=== PATIENT | female | born 1990 | race Caucasian/White ===

== ENCOUNTER 2017-11-19 04:46 | Inpatient (IN) | payer MEDICAID ==
[2017-11-19] MEDS ORDERED: AMPICILLIN 2 GM/NS (PMX) 100 ML (05:20)
[2017-11-19] MEDS ORDERED: MISOPROSTOL 200 MCG TAB PR ×2 (05:30→12:00)
[2017-11-19] MEDS ORDERED: LIDOCAINE 1% (MPF) 30 ML INJ INJ (05:30)
[2017-11-19] MEDS ORDERED: OXYCODONE/ASPIRIN (4.88/325) TAB PO (05:30)
[2017-11-19] MEDS ORDERED: METHYLERGONOVINE 0.2 MG INJ IM ×2 (05:30→12:00)
[2017-11-19] MEDS ORDERED: OXYTOCIN 30 UNITS/LR 500 ML IV ×2 (05:30→12:00)
[2017-11-19] MEDS ORDERED: IBUPROFEN 600 MG TAB PO (05:30)
[2017-11-19] MEDS ORDERED: CARBOPROST 250 MCG INJ IM ×2 (05:30→12:00)
[2017-11-19] MEDS: LACTATED RINGER'S 1,000 ML IV (05:37)
[2017-11-19] MEDS: AMPICILLIN 2 GM/NS (PMX) 100 ML IVPB (05:41)
[2017-11-19 06:34] LABS: ADD MAN DIFF? NO
[2017-11-19 06:40] LABS: BASOPHILS % 0.2 % (0.0-2.0); EOSINOPHILS % 0.3 % (0.0-7.0); HEMATOCRIT 41.9 % (37.0-47.0); HEMOGLOBIN 14.3 g/dl (12.0-16.0); LYMPHOCYTES # 2.5 10^3/ul (0.8-2.9); MEAN CORPUSCULAR HEMOGLOBIN 29.6 pg (29.0-33.0); MEAN CORPUSCULAR HGB CONC 34.1 g/dl (32.0-37.0); MEAN CORPUSCULAR VOLUME 86.7 fl (82.0-101.0); MONOCYTE # 0.5 10^3/ul (0.3-0.9); MONOCYTES % 4.1 % (0.0-11.0); NEUTROPHIL # 7.9 10^3/ul (1.6-7.5); NEUTROPHILS % 72.1 % (39.0-77.0); PLATELET COUNT 145 10^3/UL (140-415); RED BLOOD COUNT 4.83 10^6/ul (4.20-5.40); RED CELL DISTRIBUTION WIDTH 14.3 % (11.5-14.5)
[2017-11-19] MEDS: BUTORPHANOL 2 MG INJ IV (06:42)
[2017-11-19 06:51] LABS: INR 0.83; PARTIAL THROMBOPLASTIN TIME 26.6 Sec (25.0-35.0); PROTIME 11.5 Sec (11.9-14.9); PT RATIO 0.9
[2017-11-19 07:36] LABS: HEPATITIS B SURFACE ANTIGEN NEGATIVE (NEGATIVE)
[2017-11-19] MEDS: AMPICILLIN 1 GM/NS (PMX) 50 ML IVPB (09:00)
[2017-11-19] MEDS: OXYTOCIN 30 UNITS/LR 500 ML IV ×3 (09:32→11:50)
[2017-11-19] MEDS: LACTATED RINGER'S 1,000 ML IV* ×2 (11:50→19:50)
[2017-11-19] MEDS ORDERED: ZOLPIDEM 5 MG TAB PO (12:00)
[2017-11-19] MEDS ORDERED: HYDROCODONE/APAP (5/325) TAB PO (12:00)
[2017-11-19] MEDS ORDERED: ACETAMINOPHEN 325 MG TAB PO (12:00)
[2017-11-19] MEDS ORDERED: DIPHENHYDRAMINE 25 MG CAP PO (12:00)
[2017-11-19] MEDS: IBUPROFEN 800 MG TAB PO ×3 (12:13→23:32)
[2017-11-19] MEDS: WITCH HAZEL/GLYCERIN PAD PR (12:13)
[2017-11-19] MEDS: BENZOCAINE 20% 56 ML SPRAY TOP (12:14)
[2017-11-19] MEDS: LANOLIN 7 GM TUBE TOP (12:14)
[2017-11-19 15:09] LABS: RAPID PLASMA REAGIN NONREACTIVE (NR)
[2017-11-20] MEDS: LACTATED RINGER'S 1,000 ML IV* (03:50)
[2017-11-20] MEDS: IBUPROFEN 800 MG TAB PO ×4 (05:33→23:35)
[2017-11-20 09:41] LABS: ADD MAN DIFF? NO
[2017-11-20 09:47] LABS: WHITE BLOOD COUNT 11.2 10^3/ul (4.8-10.8)
[2017-11-20 09:47] LABS: BASOPHILS % 0.4 % (0.0-2.0); EOSINOPHILS % 0.4 % (0.0-7.0); HEMATOCRIT 38.9 % (37.0-47.0); HEMOGLOBIN 12.9 g/dl (12.0-16.0); LYMPHOCYTES # 3.2 10^3/ul (0.8-2.9); MEAN CORPUSCULAR HEMOGLOBIN 29.4 pg (29.0-33.0); MEAN CORPUSCULAR HGB CONC 33.2 g/dl (32.0-37.0); MEAN CORPUSCULAR VOLUME 88.6 fl (82.0-101.0); MEAN PLATELET VOLUME 12.8 fl (7.4-10.4); MONOCYTE # 0.5 10^3/ul (0.3-0.9); MONOCYTES % 4.8 % (0.0-11.0); NEUTROPHIL # 7.3 10^3/ul (1.6-7.5); NEUTROPHILS % 65.1 % (39.0-77.0); PLATELET COUNT 138 10^3/UL (140-415); RED BLOOD COUNT 4.39 10^6/ul (4.20-5.40); RED CELL DISTRIBUTION WIDTH 14.3 % (11.5-14.5)
[2017-11-20] MEDS: SENNA/DOCUSATE NA (8.6MG/50MG) TAB PO (21:32)
[2017-11-20] MEDS: MAGNESIUM HYDROXIDE 30ML CUP PO (21:32)
[2017-11-21] MEDS: IBUPROFEN 800 MG TAB PO ×2 (05:33→12:03)
[2017-11-21] MEDS: DIPHTH/TET/ACEL PERTUSS (ADULT) 0.5 ML VIAL IM* (09:47)
[2017-11-21] MEDS: VARICELLA VACCINE LIVE/PF 1,350 UNIT/0.5 ML ML SC* (09:48)
[2017-11-21] MEDS: MEASLES,MUMPS,RUBELLA VACCINE INJ SC* (09:48)
== END 2017-11-21 13:00 | disposition home or self-care (01) | DRG 775 ==
LOC: OBT 04:46 → L-D 04:48 → OBT 05:13 → L-D 05:13 → PP1 11:07
PROVIDERS: Obstetrics & Gynecology
PROC: 10E0XZZ Delivery of Products of Conception, External Approach (ICD-10-PCS; principal; 2017-11-19)
DX: O80 Encounter for full-term uncomplicated delivery (principal); Z37.0 Single live birth; Z3A.38 38 weeks gestation of pregnancy
CPT/HCPCS: 85025; 85610; 85730; 86592; 86900; 86901; 87340; 90715; 90716

== ENCOUNTER 2019-02-09 13:30 | Emergency (ER) | payer MEDICAID ==
[2019-02-09] MEDS: LACTATED RINGER S IV (15:20)
[2019-02-09] MEDS: PANTOPRAZOLE 40 MG INJ IV (15:21)
[2019-02-09] MEDS: ONDANSETRON 4 MG INJ IV (15:21)
[2019-02-09 15:23] LABS: ADD MAN DIFF? NO
[2019-02-09 15:30] LABS: WHITE BLOOD COUNT 9.3 10^3/ul (4.8-10.8)
[2019-02-09 15:30] LABS: BASOPHILS % 0.2 % (0.0-2.0); EOSINOPHILS % 0.1 % (0.0-7.0); HEMATOCRIT 46.2 % (37.0-47.0); HEMOGLOBIN 15.6 g/dl (12.0-16.0); LYMPHOCYTES # 0.8 10^3/ul (0.8-2.9); LYMPHOCYTES % 8.6 % (15.0-51.0); MEAN CORPUSCULAR HEMOGLOBIN 28.2 pg (29.0-33.0); MEAN CORPUSCULAR HGB CONC 33.8 g/dl (32.0-37.0); MEAN CORPUSCULAR VOLUME 83.4 fl (82.0-101.0); MONOCYTE # 0.5 10^3/ul (0.3-0.9); MONOCYTES % 5.3 % (0.0-11.0); NEUTROPHIL # 7.9 10^3/ul (1.6-7.5); NEUTROPHILS % 85.5 % (39.0-77.0); PLATELET COUNT 252 10^3/UL (140-415); RED BLOOD COUNT 5.54 10^6/ul (4.20-5.40); RED CELL DISTRIBUTION WIDTH 13.8 % (11.5-14.5)
[2019-02-09] MEDS: CIPROFLOXACIN 500 MG TAB PO (15:41)
[2019-02-09 15:51] LABS: ALANINE AMINOTRANSFERASE 18 IU/L (13-69); ALBUMIN 5.3 g/dl (3.3-4.9); ALBUMIN/GLOBULIN RATIO 1.23; ALKALINE PHOSPHATASE 107 IU/L (42-121); ANION GAP 20 (5-13); ASPARTATE AMINO TRANSFERASE 35 IU/L (15-46); BILIRUBIN,INDIRECT 0.5 mg/dl (0-1.1); BILIRUBIN,TOTAL 0.5 mg/dl (0.2-1.3); BLOOD UREA NITROGEN 22 mg/dl (7-20); CALCIUM 9.5 mg/dl (8.4-10.2); CARBON DIOXIDE 22 mmol/L (21-31); CHLORIDE 100 mmol/L (97-110); CREATININE 0.72 mg/dl (0.44-1.00); Estimated GFR > 60 mL/min (>60); GLUCOSE 106 mg/dl (70-220); LIPASE 55 U/L (23-300); POTASSIUM 3.4 mmol/L (3.5-5.1); SODIUM 142 mmol/L (135-144); TOTAL PROTEIN 9.6 g/dl (6.1-8.1)
[2019-02-09 16:00] LABS: UR CLARITY CLOUDY (CLEAR); UR COLOR YELLOW (YELLOW); UR SPECIFIC GRAVITY (Dip) 1.035 (1.003-1.030)
[2019-02-09 16:01] LABS: ADD UMIC YES; UR ASCORBIC ACID 40 mg/dL (NEGATIVE); UR BILIRUBIN (Dip) 2+ mg/dL (NEGATIVE); UR BLOOD (Dip) NEGATIVE (NEGATIVE); UR GLUCOSE (Dip) 2+ mg/dL (NEGATIVE); UR KETONES (Dip) NEGATIVE (NEGATIVE); UR LEUKOCYTE ESTERASE (Dip) NEGATIVE Leu/ul (NEGATIVE); UR NITRITE (Dip) NEGATIVE (NEGATIVE); UR TOTAL PROTEIN (Dip) 2+ mg/dl (NEGATIVE); UR UROBILINOGEN (Dip) 0.2 E.U./dL mg/dL (NEGATIVE); URINE PH (Dip) 5 (5.0-9.0)
[2019-02-09 16:04] LABS: UR AMORPHOUS CRYSTAL FEW /HPF (NONE SEEN); UR BACTERIA FEW /HPF (NONE SEEN); UR HYALINE CAST FEW /HPF (NONE SEEN); UR MUCUS MANY /HPF (NONE SEEN); UR RBC 0 /HPF (0-5); UR SQUAMOUS EPITHELIAL CELL MANY /HPF (FEW); UR WBC 14 /HPF (0-5)
== END 2019-02-09 16:40 | disposition home or self-care (01) ==
LOC: FTE 13:30
DX: K52.9 Noninfective gastroenteritis and colitis, unspecified (principal); N39.0 Urinary tract infection, site not specified
CPT/HCPCS: 80053; 81001; 81025; 83605; 83690; 84703; 85025; 96374; 96375; 99284-25